=== PATIENT | female | born 1985 | race Caucasian/White ===

== ENCOUNTER 2017-04-27 13:25 | Emergency (ER) | payer OTHER ==
[~2017-04-27] VITALS: Wt 93.0 kg
[~2017-04-27 13:25] MED LIST: AMOXICILLIN500 MG PO; ANAPROX DS550 MG PO; AUGMENTIN 875 M1 TAB PO; BACTRIM DS 8001 TA1 PO; CIPROFLOXACIN500 MG PO; CLINDAMYCIN HC300 MG PO; COREG12.5 M1 PO; DAYPRO600 MG PO; FLEXERIL10 MG PO; FLONASE ALLERG9.9 ML NAS; KEFLEX500 MG PO; LEVAQUIN750 MG PO; MELOXICAM15 MG PO; MOTRIN800 MG PO; NAPROSYN500 MG PO; NKHM; PREDNISONE10 MG PO; ROBITUSSIN AC 110 ML PO; TESSALON PERLE100 M1 PO; THE MEDICINE S400 IU PO; TOBREX 5 ML5 ML OP; TOBREX OPHTH S2.5 ML OPH; TORADOL10 MG PO; TRAMADOL HCL50 MG PO; VICODIN 500 MG-1 TAB PO; VICODIN ES 7501 TAB PO; Vibra-Tab100 MG PO; ZANTAC 150150 MG PO; ZITHROMAX500 MG PO; ZYRTEC10 M3 PO
[2017-04-27] MEDS ORDERED: ACULAR 3 ML3 M1 OPH (14:31)
[2017-04-27] MEDS ORDERED: Tobrex Ophth S2.5 ML OPH (14:31)
== END 2017-04-27 14:41 | disposition home or self-care (01) ==
LOC: ED 13:25
DX: S05.01XA Injury of conjunctiva and corneal abrasion without foreign body, right eye, initial encounter (principal); F17.200 Nicotine dependence, unspecified, uncomplicated; Z88.6 Allergy status to analgesic agent; Z79.899 Other long term (current) drug therapy; X58.XXXA Exposure to other specified factors, initial encounter; Y93.89 Activity, other specified; Y92.89 Other specified places as the place of occurrence of the external cause; Y99.8 Other external cause status

== ENCOUNTER 2017-10-06 19:19 | Emergency (ER) | payer BC ==
[~2017-10-06] VITALS: Ht 165.1 cm; Wt 91.6 kg
[~2017-10-06 19:19] MED LIST changes: +ACULAR 3 ML3 M1 OPH; +Tobrex Ophth S2.5 ML OPH
[2017-10-06] MEDS ORDERED: EPIPEN 2-P0.3 MG/0.3 IJ (21:31)
== END 2017-10-06 23:17 | disposition home or self-care (01) ==
LOC: ED 19:19
DX: L23.9 Allergic contact dermatitis, unspecified cause (principal); F17.200 Nicotine dependence, unspecified, uncomplicated; F10.10 Alcohol abuse, uncomplicated; Z88.8 Allergy status to other drugs, medicaments and biological substances; Z88.5 Allergy status to narcotic agent; Z79.899 Other long term (current) drug therapy

== ENCOUNTER 2020-02-29 16:19 | Emergency (ER) | payer OTHER ==
[~2020-02-29] VITALS: Ht 160 cm; Wt 99.8 kg
[~2020-02-29 16:19] MED LIST changes: +EPIPEN 2-P0.3 MG/0.3 IJ
== END 2020-02-29 19:14 | disposition home or self-care (01) ==
LOC: ED 16:19
DX: T65.891A Toxic effect of other specified substances, accidental (unintentional), initial encounter (principal); T26.61XA Corrosion of cornea and conjunctival sac, right eye, initial encounter; F17.200 Nicotine dependence, unspecified, uncomplicated; Z88.6 Allergy status to analgesic agent; Z79.899 Other long term (current) drug therapy; Y93.89 Activity, other specified; Y92.89 Other specified places as the place of occurrence of the external cause; Y99.8 Other external cause status

== ENCOUNTER 2020-04-30 19:14 | Emergency (ER) | payer OTHER ==
[~2020-04-30] VITALS: Ht 160 cm; Wt 103.0 kg
[2020-04-30] MEDS ORDERED: AUGMENTIN 875-875 MG PO (19:57)
== END 2020-04-30 20:02 | disposition home or self-care (01) ==
LOC: ED 19:14
DX: H66.93 Otitis media, unspecified, bilateral (principal); Z79.899 Other long term (current) drug therapy; Z88.8 Allergy status to other drugs, medicaments and biological substances

== ENCOUNTER 2020-05-14 22:02 | Emergency (ER) | payer OTHER ==
[~2020-05-14] VITALS: Ht 160 cm; Wt 103.0 kg
[~2020-05-14 22:02] MED LIST changes: +AUGMENTIN 875-875 MG PO
== END 2020-05-15 01:14 | disposition home or self-care (01) ==
LOC: ED 22:02
DX: L29.8 Other pruritus (principal); T47.1X5A Adverse effect of other antacids and anti-gastric-secretion drugs, initial encounter; Z88.8 Allergy status to other drugs, medicaments and biological substances; Z88.6 Allergy status to analgesic agent; Z79.899 Other long term (current) drug therapy; Y92.89 Other specified places as the place of occurrence of the external cause

== ENCOUNTER 2020-05-25 06:19 | Observation (INO) | payer OTHER ==
[~2020-05-25] VITALS: Ht 160 cm; Wt 104.1 kg
[2020-05-25] VITALS (10 sets, daily range): BP systolic 105–127; BP diastolic 61–88
[2020-05-25 06:52] LABS: HEMATOCRIT 44.8 % (37.0-47.0); MEAN CELL VOLUME 95.7 fl (81.0-99.0); MEAN CORPUSCULAR HGB 32.1 pg (27.0-31.0); MEAN CORPUSCULAR HGB CONC 33.5 g/dl (33.0-37.0); MEAN PLATELET VOLUME 12.3 fl (9.6-12.3); PLATELET COUNT AUTOMATED 229 10*3/uL (130-400); RED BLOOD COUNT 4.68 10*6/uL (4.10-5.10); RED CELL DISTRI WIDTH 13.2 % (0-14.5); WHITE BLOOD COUNT 16.6 10*3/uL (4.8-10.8)
[2020-05-25 07:05] LABS: ALBUMIN 3.7 gm/dl (3.1-4.5); ALKALINE PHOSPHATASE 80 U/L (45-117); BUN 12 mg/dl (7-24); CHLORIDE 107 mmol/L (98-107); CREATININE 1.05 mg/dL (0.55-1.02); POTASSIUM 3.1 mmol/L (3.5-5.1); SGOT/AST 18 IU/L (3-35); SGPT/ALT 40 U/L (12-78); SODIUM 141 mmol/L (136-145); TOTAL PROTEIN 6.7 gm/dL (6.4-8.2)
[2020-05-25 07:08] LABS: TROPONIN I < 0.015 ng/ml (<0.045)
[2020-05-25 07:13] LABS: TOTAL CELLS COUNTED 100 #CELLS
[2020-05-25 07:14] LABS: PLATELET SUFFICIENCY NORMAL (NORMAL)
[2020-05-25 09:21] LABS: THYROXINE (T4) TOTAL 9.1 ug/dl (4.8-13.9)
[2020-05-25 09:26] LABS: THYROID STIM HORMONE (HS) 6.17 uIU/ml (0.358-4.75)
[2020-05-25] MEDS ORDERED: SERTRALINE HYDR50 MG PO (11:16)
[2020-05-25] MEDS ORDERED: VITAMIN D350 MC2 PO (11:16)
[2020-05-25] MEDS ORDERED: PROPRANOLOL HY120 MG PO (11:16)
[2020-05-25] MEDS ORDERED: ATORVASTATIN CA20 M1 PO (11:16)
[2020-05-26] VITALS: BP 122/75
[2020-05-26 05:38] LABS: BUN 11 mg/dl (7-24); CHLORIDE 111 mmol/L (98-107); CREATININE 0.83 mg/dL (0.55-1.02); SODIUM 141 mmol/L (136-145)
[2020-05-26 05:44] LABS: POTASSIUM 4.3 mmol/L (3.5-5.1)
[2020-05-26 07:36] VITALS: BP 104/60
== END 2020-05-26 10:22 | disposition left against medical advice (07) ==
LOC: ED 06:19 → EDHOLD 08:57 → 4E 08:57 → EDHOLD 08:57 → 4E 09:59
PROVIDERS: Emergency Medicine; Internal Medicine; ADMIT Internal Medicine; ATTEND Internal Medicine
DX: I48.91 Unspecified atrial fibrillation (principal); T78.2XXA Anaphylactic shock, unspecified, initial encounter; I10 Essential (primary) hypertension; E87.6 Hypokalemia; E66.01 Morbid (severe) obesity due to excess calories; Z68.41 Body mass index [BMI] 40.0-44.9, adult; F17.200 Nicotine dependence, unspecified, uncomplicated

== ENCOUNTER 2020-06-27 15:30 | Emergency (ER) | payer OTHER ==
[~2020-06-27 15:30] MED LIST changes: +ATORVASTATIN CA20 M1 PO; +PROPRANOLOL HY120 MG PO; +SERTRALINE HYDR50 MG PO; +VITAMIN D350 MC2 PO
== END 2020-06-27 17:27 | disposition home or self-care (01) ==
LOC: ED 15:30
DX: M72.2 Plantar fascial fibromatosis (principal); Z88.8 Allergy status to other drugs, medicaments and biological substances; Z88.6 Allergy status to analgesic agent; Z79.899 Other long term (current) drug therapy

== ENCOUNTER 2021-05-28 21:22 | Emergency (ER) | payer OTHER ==
[~2021-05-28] VITALS: Ht 160 cm; Wt 106.6 kg
[2021-05-29 00:06] LABS: BILIRUBIN Negative (Negative); BLOOD Negative (Negative); CLARITY Clear (Clear); COLOR Yellow (Yellow); GLUCOSE Negative (Negative); KETONE Trace (Negative); LEUKO ESTERASE Negative (Negative); NITRITE Negative (Negative); SPECIFIC GRAVITY >= 1.030 (1.001-1.030)
[2021-05-29 00:06] LABS: BASO % 0.3 % (0.0-1.0); EOS # 0.4 10*3/uL (0.0-0.4); EOS % 3.4 % (1.0-4.0); HEMATOCRIT 45.4 % (37.0-47.0); LYMPH % 32.1 % (27.0-41.0); MEAN CELL VOLUME 95.8 fl (81.0-99.0); MEAN CORPUSCULAR HGB 31.9 pg (27.0-31.0); MEAN CORPUSCULAR HGB CONC 33.3 g/dl (33.0-37.0); MEAN PLATELET VOLUME 12.5 fl (9.6-12.3); MONO # 0.7 10*3/uL (0.1-1.0); MONO % 5.4 % (3.0-9.0); NEUT # 7.3 10*3/uL (2.3-7.9); NEUT % 58.5 % (47.0-73.0); PLATELET COUNT AUTOMATED 235 10*3/uL (130-400); RED BLOOD COUNT 4.74 10*6/uL (4.10-5.10); RED CELL DISTRI WIDTH 12.4 % (0-14.5); WHITE BLOOD COUNT 12.6 10*3/uL (4.8-10.8)
[2021-05-29 00:14] LABS: RBC 0-2 rbc/hpf (0-2); WBC 0-2 wbc/hpf (0-5)
[2021-05-29 00:21] LABS: ALBUMIN 4.1 gm/dl (3.1-4.5); ALKALINE PHOSPHATASE 91 U/L (45-117); BUN 12 mg/dl (7-24); CHLORIDE 108 mmol/L (98-107); CREATININE 0.96 mg/dL (0.55-1.02); LIPASE 126 U/L (73-393); POTASSIUM 3.9 mmol/L (3.5-5.1); SGOT/AST 23 IU/L (3-35); SGPT/ALT 52 U/L (12-78); SODIUM 140 mmol/L (136-145); TOTAL PROTEIN 7.6 gm/dL (6.4-8.2)
[2021-05-29] MEDS ORDERED: CYCLOBENZAPRINE10 MG PO (02:55)
== END 2021-05-29 03:09 | disposition home or self-care (01) ==
LOC: ED 21:22
PROVIDERS: Emergency Medicine
DX: R10.11 Right upper quadrant pain (principal); M54.9 Dorsalgia, unspecified; F17.200 Nicotine dependence, unspecified, uncomplicated; Z88.8 Allergy status to other drugs, medicaments and biological substances; Z79.899 Other long term (current) drug therapy

== ENCOUNTER 2021-12-18 11:32 | Emergency (ER) | payer BC, OTHER ==
[~2021-12-18 11:32] MED LIST changes: +CYCLOBENZAPRINE10 MG PO
[2021-12-18 11:52] LABS: BASO # 0.1 10*3/uL (0.0-0.1); BASO % 0.6 % (0.0-1.0); EOS # 0.2 10*3/uL (0.0-0.4); HEMATOCRIT 44.9 % (37.0-47.0); LYMPH # 2.4 10*3/uL (1.3-4.4); LYMPH % 29.4 % (27.0-41.0); MEAN CELL VOLUME 93.9 fl (81.0-99.0); MEAN CORPUSCULAR HGB 31.8 pg (27.0-31.0); MEAN CORPUSCULAR HGB CONC 33.9 g/dl (33.0-37.0); MEAN PLATELET VOLUME 12.2 fl (9.6-12.3); MONO # 0.7 10*3/uL (0.1-1.0); NEUT # 4.6 10*3/uL (2.3-7.9); NEUT % 57.7 % (47.0-73.0); PLATELET COUNT AUTOMATED 270 10*3/uL (130-400); RED BLOOD COUNT 4.78 10*6/uL (4.10-5.10); RED CELL DISTRI WIDTH 12.4 % (0-14.5)
[2021-12-18 12:14] LABS: ALKALINE PHOSPHATASE 81 U/L (45-117); BUN 11 mg/dl (7-24); CHLORIDE 107 mmol/L (98-107); CREATININE 0.94 mg/dL (0.55-1.02); SGOT/AST 25 IU/L (3-35); SGPT/ALT 60 U/L (12-78); SODIUM 141 mmol/L (136-145); TOTAL PROTEIN 7.1 gm/dL (6.4-8.2)
[2021-12-18 12:16] LABS: LIPASE 100 U/L (73-393)
[2021-12-18 12:20] LABS: BETA-HCG, QUANT < 1.0 mIU/mL (1-3)
== END 2021-12-18 14:33 | disposition home or self-care (01) ==
LOC: ED 11:32
PROVIDERS: Emergency Medicine
DX: R07.9 Chest pain, unspecified (principal); Z88.8 Allergy status to other drugs, medicaments and biological substances; Z79.899 Other long term (current) drug therapy

== ENCOUNTER 2023-06-12 13:22 | Emergency (ER) | payer BC ==
[~2023-06-12] VITALS: Ht 160 cm; Wt 108.9 kg
== END 2023-06-12 15:53 | disposition home or self-care (01) ==
LOC: ED 13:22
DX: S93.401A Sprain of unspecified ligament of right ankle, initial encounter (principal); K21.9 Gastro-esophageal reflux disease without esophagitis; Z87.442 Personal history of urinary calculi; F41.9 Anxiety disorder, unspecified; Z88.8 Allergy status to other drugs, medicaments and biological substances; Z88.6 Allergy status to analgesic agent; Z88.5 Allergy status to narcotic agent; Z98.890 Other specified postprocedural states; X50.1XXA Overexertion from prolonged static or awkward postures, initial encounter; Y93.89 Activity, other specified; Y92.89 Other specified places as the place of occurrence of the external cause; Y99.8 Other external cause status

== ENCOUNTER 2024-01-14 10:30 | Emergency (ER) | payer OTHER ==
[~2024-01-14] VITALS: Ht 160 cm; Wt 106.6 kg
[~2024-01-14 10:30] MED LIST changes: -CYCLOBENZAPRINE5 M3 PO
[2024-01-14] MEDS ORDERED: Ketorolac Tromethamine 30 MG/ML VIAL IM ONE (10:50)
[2024-01-14] MEDS ORDERED: methylPREDNISolone sod succ 125 MG VIAL IM ONE (10:50)
[2024-01-14] MEDS ORDERED: CYCLOBENZAPRINE5 M3 PO (12:57)
== END 2024-01-14 13:07 | disposition home or self-care (01) ==
LOC: ED 10:30
DX: M54.12 Radiculopathy, cervical region (principal); M54.16 Radiculopathy, lumbar region; K21.9 Gastro-esophageal reflux disease without esophagitis; F41.9 Anxiety disorder, unspecified; Z87.442 Personal history of urinary calculi; Z88.8 Allergy status to other drugs, medicaments and biological substances; Z88.6 Allergy status to analgesic agent; Z98.890 Other specified postprocedural states

== ENCOUNTER → 2024-01-14 | Outpatient (CLI) | payer OTHER ==
[~2024-01-14] MED LIST changes: +CYCLOBENZAPRINE5 M3 PO
[2024-01-14 14:28] LABS: ALKALINE PHOSPHATASE 89 U/L (46-116); BUN 14 mg/dl (9-23); CHLORIDE 106 mmol/L (98-107); POTASSIUM 4.2 mmol/L (3.4-5.1); SGPT/ALT 39 U/L (5-49); TOTAL PROTEIN 7.5 gm/dL (6.0-8.0)
== END | disposition home or self-care (01) ==
LOC: LAB 13:44
PROVIDERS: ATTEND Internal Medicine
DX: E78.2 Mixed hyperlipidemia (principal); G25.81 Restless legs syndrome; E87.6 Hypokalemia; N91.2 Amenorrhea, unspecified

== ENCOUNTER → 2024-02-12 | Outpatient (CLI) | payer OTHER ==
[~2024-02-12] MED LIST changes: +CYCLOBENZAPRINE5 M3 PO
== END | disposition home or self-care (01) ==
LOC: US 12:41
PROVIDERS: ATTEND Nurse Practitioner Women's Health
DX: E28.2 Polycystic ovarian syndrome (principal); N94.9 Unspecified condition associated with female genital organs and menstrual cycle